=== PATIENT | female | born 1980 | race Two or more races ===

== ENCOUNTER 2025-07-07 13:40 | Inpatient (IN) | payer OTHER ==
[~2025-07-07] VITALS: Ht 162.6 cm; Wt 76.2 kg
[2025-07-07] MEDS ORDERED: TOPROL XL25 M1 (13:46)
--- NOTE | 2025-07-07 13:56 | NUR ---
SE REICBE PTE ALERTA Y ORIENTADA X3. REFIERE QUE EN EL ELISE DE MARILYN LA DRA. TYRON PERKINS LE REALIZO COLONOSCOPIA Y EN EL ELISE DE HOY TYLER TENIDO 4 EVACUACIONES CON RAMEZ. SE MIDE SV, PULSO 125, SE REALIZA EKG Y SE PRESENTA A DR. GONCALVES. SE UBICA EN SUSAN
[2025-07-07] MEDS ORDERED: BARIUM SULFATE 450 ML ORAL.SUSP PO ONE (15:04)
--- NOTE | 2025-07-07 15:13 | NUR ---
WILKERSON EDUCA A PTE SOBRE [place] MED[facility], SE KIANA MUESTRAS DE [id number] UTILIZANDO MEDIDAS ASEPTICAS. SE COLOCA H/L ELVIN DE EDEMA. SE CAMILLA CONTRASTE PO A PTE Y SE NOTIFICA ESTUDIO DE CT PENDIENTE. PTE EN ESPERA DE CONSULTA CON CIRUJANO.
[2025-07-07 15:48] LABS: COVID-19 AG NEGATIVE (NEGATIVE)
[2025-07-07 15:50] LABS: BASO % 0.1 % (0.1-1.2); EOS # 0.00 (0.04-0.54); EOS % 0.0 % (0.7-7.0); LYMPH # 1.79 (1.18-3.74); LYMPH % 15.3 % (19.3-53.1); MEAN PLATELET VOLUME 10.40 fl (9.4-12.4); MONO # 1.01 (0.24-0.82); MONO % 8.6 % (4.7-12.5); NEUT # 8.88 (1.56-6.13); NEUT % 75.7 % (34.0-71.1); RED CELL DISTRIBUTION WIDTH 16.4 % (11.6-14.4)
[2025-07-07 15:58] LABS: URINE APPEARANCE Clear; URINE BILIRRUBIN Negative (NEGATIVE); URINE BLOOD Negative; URINE COLOR Yellow; URINE GLUCOSE Negative (NEGATIVE); URINE KETONE 15 (NEGATIVE); URINE LEUKOCYTE Trace; URINE NITRATE Negative; URINE PROTEIN Trace (NEGATIVE); URINE UROBILINOGEN 0.2 E.U./dl
[2025-07-07 16:03] LABS: URINE BACTERIA 99.5 uL (0.0-1933); URINE EPITHELIAL CELLS 11.8 uL (0.0-38.8); URINE RBC 26.2 uL (0.0-20.8); URINE WBC 14.1 uL (0.0-23.2)
[2025-07-07 16:10] LABS: INR 1.11
[2025-07-07 16:12] LABS: URINE CAST 0.00 uL (0.0-1.40)
[2025-07-07 16:15] LABS: ALT/SGPT 20.0 U/L (12-78); AST/SGOT 12.0 U/L (15-37); BILIRUBIN TOTAL 0.3 mg/dL (0.3-1.2); BUN CREA RATIO 14.0 (7.0-25.0); CREATININE SERUM 0.95 mg/dL (0.55-1.02); GFR 63.33; GLOBULINA 3.9 G/DL (2.4-3.5); GLUCOSE FASTING 128.0 mg/dL (65-100); OSMOLALITY SERUM 279.0 MOSM/KG (275-295)
[2025-07-07] MEDS ORDERED: PANTOPRAZOLE SODIUM 40 MG/VIAL VIAL IV SCH (16:57)
[2025-07-07] MEDS ORDERED: LACTOBACILLUS ACIDOPHILUS 1 CAP CAP PO SCH (16:58)
[2025-07-07] MEDS ORDERED: RINGERS SOLUTION,LACTATED 1,000 ML IV SCH (17:00)
[2025-07-07] MEDS ORDERED: ONDANSETRON HCL 2 MG/ML VIAL IV PRN (17:00)
[2025-07-07] MEDS ORDERED: LACTOBACILLUS ACIDOPHILUS 1 CAP CAP PO ONE (17:48)
[2025-07-07 20:57] VITALS: BP 123/81; O2SAT 97
[2025-07-08 00:48] VITALS: BP 119/76; O2SAT 100
[2025-07-08 08:00] VITALS: BP 130/80; O2SAT 97
[2025-07-08 08:32] LABS: BASO % 0.3 % (0.1-1.2); EOS # 0.04 (0.04-0.54); EOS % 0.4 % (0.7-7.0); LYMPH # 3.27 (1.18-3.74); LYMPH % 31.6 % (19.3-53.1); MEAN PLATELET VOLUME 11.10 fl (9.4-12.4); MONO # 1.01 (0.24-0.82); MONO % 9.7 % (4.7-12.5); NEUT # 5.98 (1.56-6.13); NEUT % 57.7 % (34.0-71.1); RED CELL DISTRIBUTION WIDTH 16.5 % (11.6-14.4)
[2025-07-08 08:42] LABS: BUN CREA RATIO 19.0 (7.0-25.0); CREATININE SERUM 0.54 mg/dL (0.55-1.02); GFR 121.54; GLUCOSE FASTING 94.0 mg/dL (65-100); OSMOLALITY SERUM 278.0 MOSM/KG (275-295)
[2025-07-08] MEDS ORDERED: SOD FERRIC GLUC COMPLX/SUCROSE 62.5 MG in 0.9 % SODIUM CHLORIDE 50 ML IV SCH (13:49)
[2025-07-08 16:00] VITALS: BP 123/81; O2SAT 96
[2025-07-09 01:14] VITALS: BP 108/61; O2SAT 100
[2025-07-09] MEDS ORDERED: TRAM1TAB98 PO (10:03)
[2025-07-09] MEDS ORDERED: INTEGRA F CAPS1 EACH PO (10:03)
[2025-07-09 10:11] LABS: BASO % 0.6 % (0.1-1.2); EOS # 0.03 (0.04-0.54); EOS % 0.4 % (0.7-7.0); LYMPH # 3.18 (1.18-3.74); LYMPH % 46.0 % (19.3-53.1); MEAN PLATELET VOLUME 11.30 fl (9.4-12.4); MONO # 0.70 (0.24-0.82); MONO % 10.1 % (4.7-12.5); NEUT # 2.93 (1.56-6.13); NEUT % 42.5 % (34.0-71.1); RED CELL DISTRIBUTION WIDTH 16.8 % (11.6-14.4)
== END 2025-07-09 11:50 | disposition home or self-care (01) | DRG 379 ==
LOC: ER 13:40 → SURG 17:42
PROVIDERS: Emergency Medicine; Surgery; ADMIT Surgery; ATTEND Surgery
PROC: BW21YZZ Computerized Tomography (CT Scan) of Abdomen and Pelvis using Other Contrast (ICD-10-PCS; principal; 2025-07-07)
DX: K62.5 Hemorrhage of anus and rectum (principal); I10 Essential (primary) hypertension